=== PATIENT | male | born 1995 | race Caucasian/White ===

== ENCOUNTER 2017-07-25 11:00 | Outpatient (RCR) | payer BC ==
[2017-06-27 12:26] VITALS: Ht 173 cm; Wt 65.9 kg
[~2017-07-25] VITALS: Ht 173 cm; Wt 65.9 kg
[~2017-07-25 11:00] MED LIST: CIPR-214 PO; FAMO20TA28 PO; HYDR-385 PO; IBUP-1671 PO
[2017-07-25 11:06] VITALS: BP 119/71
--- NOTE | 2017-07-29 16:20 | ONCOLOGY CONSULTATION ---
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 ONCOLOGY HISTORY Patient is a 22-year-old [place] male who presented with right testicular pain and swelling, so he presented to the emergency department, where he had an ultrasound of the testes and scrotum done on the June 25, 2017, which showed multiple right testicular masses. On June 25, 2017 he had a chest x- ray which was normal. On June 25, 2017 he had a preoperative alfafetoproteina which was high at 19. Beta hCG was high at 13, and LDH was normal at 523. On June 25, 2017 he had right orchiectomy and the pathology came back positive for 2 masses. The larger was 4 x 2.4 x 1.5 cm, and the smaller one measured 1.5 x 1.3 x 1 cm. Both are cystic. The tunica albuginea was not penetrated. The spermatic cord did not show evidence of a metastatic tumor at the margin. The tumor itself has areas of poorly-differentiated embryonal carcinoma alternating with teratomatous elements, including cartilage and adipose tissue and some immature -type tissue, and the tumor does not extend through the tunica albuginea. 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 So, the tumor is a stage 2 (pT1b cN1 cM0) based on a CT abdomen and pelvis which was done on July 10, 2017 and showed 1.2 cm right external iliac nodule. Could be a lymph node. PAST MEDICAL HISTORY Insignificant. PAST SURGICAL HISTORY Right orchiectomy on June 25, 2017. SOCIAL HISTORY Patient is single with no children. He works at [employer]. He smokes electronic cigarettes, but he drinks about 2 to 3 drinks during the weekends between hard liquor and beer. He used also marijuana. FAMILY HISTORY Maternal grandmother had some sort of cancer. He does not know exactly the type , but his paternal uncle had prostate cancer. CURRENT MEDICATIONS None. ALLERGIES No known drug allergies. REVIEW OF SYSTEMS CONSTITUTIONAL: No appetite or weight change. No fever, chills or sweating. No recent infection. HEENT: Ears: No tinnitus or hearing problem. Nose: No nasal discharge or epistaxis. Throat: No sore throat or mouth ulcers. Eyes: No diplopia or visual changes. RESPIRATORY: No shortness of breath. No cough, expectoration or hemoptysis. CARDIOVASCULAR: No chest pain, orthopnea, or paroxysmal nocturnal dyspnea (PND) . No edema. No palpitations. GASTROINTESTINAL: No nausea or vomiting. No diarrhea or constipation. No change in bowel movements. No heartburn or swallowing difficulties. No abdominal pain. No jaundice. No hematemesis, melena or rectal bleeding. GENITOURINARY: No hematuria or dysuria. MUSCULOSKELETAL: No pain in the muscles, joints or bones. NEUROLOGICAL: No tingling or numbness in the hands or feet. No headaches or convulsions. HEMATOLOGIC/LYMPHATIC: No bleeding or easy bruising. No weakness or fatigue. No enlarged lymph nodes. SKIN: No skin rash or lumps. PSYCHIATRIC: No anxiety or depression. PHYSICAL EXAMINATION GENERAL: Looks stable. Well-developed, well-nourished, and in no acute distress. VITAL SIGNS: Blood pressure 119/71, pulse 78 per minutes, respirations 16 per minute, temperature 96.8, pulse ox 94% on room air. Height 173 cm and weight 65 kilograms. HEENT: Head: Atraumatic. No sinus tenderness to palpation. Eyes: No icterus or conjunctivitis. Mouth and throat: No oral thrush or mucositis. NECK: Supple. No cervical or supraclavicular lymphadenopathy. LUNGS: Clear to auscultation and percussion bilaterally. HEART: Regular rate and rhythm. No gallops, murmurs, clicks or rubs. ABDOMEN: Soft and lax. No tenderness. No hepatosplenomegaly. No masses. EXTREMITIES: No cyanosis, clubbing or edema. LYMPHATICS: No peripheral lymphadenopathy. NEUROLOGICAL: Conscious, alert and oriented times three. No focal motor or sensory deficits. PSYCHIATRIC: Mood and affect appear normal. SKIN: No skin rash, bruise or purpuric eruption. 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 Preoperative tumor markers showed high alfafetoproteina at 19 and high beta hCG at 13 with normal LDH at 523. Patient had right orchiectomy done on June 25, 2017, and 2 masses were found limited to the testicle. The largest one was 4 cm while the smaller one was 1.5 cm. There is no invasion of the spermatic cord margin and no penetration of the tunica albuginea. CT abdomen and pelvis done on July 10, 2017 did reveal 1.2 cm right external iliac nodule suggestive of lymph node metastases. I am planning to get a PET CT scan to evaluate this lymph node to see if they are malignant or not. I am planning to repeat his marker to see if the markers are persistently elevated or not, so I am planning to check his alfafetoproteina, beta hCG, and LDH. I will see him after that to decide about further management. I am planning also to check his pulmonary function test for DLCO if the patient will use BEP chemotherapy with bleomycin. So, hopefully next week we will send him to start his chemotherapy. For the administration of chemotherapy, I may decide to place a PICC line for the treatment. The number of chemotherapy cycles will differ according to the stage , and the type of chemotherapy will differ between BEP or ET chemotherapy based also on the stage. I explained that to the patient, and patient is agreeable with the plan of management. PLAN 1. PET CT scan. 2. Pulmonary function tests for DLCO. 3. Check CBC, chem panel, alfafetoproteina, quantitative beta hCG, and LDH. 4. Patient to return in 1 week for further evaluation and management. 5. Patient to contact us for any new concerns or complaints. EMILYD
[2017-08-13 16:43] VITALS: BP 122/58
[2017-08-13 17:38] LABS: PLATELET COUNT, AUTOMATED 222 K/uL (150-450)
--- NOTE | 2017-08-13 23:34 | ONCOLOGY FOLLOW UP NOTE ---
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 CHIEF COMPLAINT Patient feels well today. INTERIM HISTORY Patient returns to clinic for a follow-up visit today. He had been seen initially by Dr. Frey here in the [facility]. Due to logistical issues and timing, he is seeing me for followup today. Symptomatically, he reports that he is feeling just fine. He has questions about his potential future need for chemotherapy, and he requests that we have his mother on the phone for a conference call today. REVIEW OF SYSTEMS Otherwise negative, and all systems were reviewed. PAST MEDICAL HISTORY None. PAST SURGICAL HISTORY Status post right orchiectomy, June 25, 2017. CURRENT MEDICATIONS None. ALLERGIES None. SOCIAL HISTORY The patient is currently single and does not have children. He is going to [employer], and he reports that he will be graduating this year. He has occasional alcohol, but intake does not seem heavy. He has used marijuana in the past. He reportedly smokes electronic cigarettes. FAMILY HISTORY He does report that his maternal grandmother had of cancer, but he is not sure what type. A paternal uncle had prostate cancer. VITAL SIGNS Temperature 97.0, blood pressure 122/58, heart rate is 73, respirations 16, oxygen saturation is 97% on room air. Weight is 65.9 kg. PHYSICAL EXAMINATION GENERAL: Patient is alert and oriented times three, in no apparent distress sitting in the exam room chair. He appears quite healthy. He is interactive and in good spirits. HEENT: Exam reveals anicteric sclerae. NEUROLOGIC: Exam is grossly normal and his gait is normal. EXTREMITIES: Exam reveals no edema, clubbing or cyanosis. SKIN: Exam reveals no concerning rash or lesions. LABORATORY STUDIES Reviewed per the [facility] record. IMAGING STUDIES Reviewed per the [facility] record. PATHOLOGY Results are reviewed per the [facility] record. 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 I had a good visit with Catracho, and his mother via the phone today. We spent time reviewing his oncologic history. For brief review, he did undergo a testicular ultrasound on June 25, after presenting with right testicular pain. The ultrasound showed right testicular masses. He had a subsequent chest x-ray which was normal. His preoperative tumor markers revealed a slightly elevated AFP at 19. His beta HCG was 13, and LDH was normal at 523. He underwent right orchiectomy on June 25. We spent time reviewing his pathology report today. There were reportedly two masses. The tumor had areas of poorly differentiated embryonal carcinoma as well as teratomatous elements including cartilage and adipose tissue and some immature type tissue. The tumor did not extend through the tunica albuginea. There was no evidence of spermatic cord involvement. He subsequently underwent a CT scan of the abdomen and pelvis on July 10. This revealed a 1.2 x 0.9 right external iliac nodule adjacent to a surgical clip near the postoperative site above the groin, possibly representing an area of scarring or a mildly prominent lymph node. The CT scan was otherwise negative. Catracho had questions today about his potential need for adjuvant chemotherapy. We spent time discussing the nature of nonseminomatous germ cell tumors, and in particular the aggressive component being the embryonal component. At this point, I am a bit uncertain about his staging. His pathology report indicates no invasion of the tunica albuginea, but I am uncertain of presence of lymphovascular invasion. This will need to be clarified with Pathology. In addition, there is this 1.2 x 0.9 cm nodule/lymph node that is in a somewhat atypical position for what would be considered a classical lymph node metastasis from his testicular primary. I would also like to have his imaging reviewed at [facility] [place] as soon as possible. I will arrange for this. At this point, with his staging being somewhat uncertain, I cannot say whether adjuvant chemotherapy for this young man is absolutely imperative. Should he have a lower stage primary tumor, or should there be less concern for N1 disease , we could potentially have him move forward with surveillance. It had previously been recommended that he go for a CT PET scan, and I do think that this could be helpful. We will help him get this scheduled today. He has not yet had postoperative tumor markers drawn, which also had been recommended. I have implored him to go to the lab by the end of this week to have his markers re-drawn. If there is persistent elevation in his markers, he will require chemotherapy. As discussed further today, I will be back in touch with the patient when we have further information. I would like to see him during my next trip to [facility]. Although we did not discuss this possibility much today , depending on his final staging, he could potentially entertain the idea of undergoing retroperitoneal lymph node dissection. This would be discussed in the future if pertinent. Catracho and his mother had several further questions for me today, and I believe I answered all of their questions to their satisfaction. I spent a total of 45 minutes of total care time face to face with the patient today, and 40 minutes of this was spent in direct counseling and coordination of care. JOHNNA
--- NOTE | 2017-09-03 21:33 | ONCOLOGY FOLLOW UP NOTE ---
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 CHIEF COMPLAINT The patient feels well today. INTERIM HISTORY Catracho returns to clinic for a follow-up visit today. Since our last visit, he has been feeling just fine. He has no new symptoms to report. He has undergone a CT PET scan, he has had repeat tumor markers drawn, and he has had his prior CT scan re-reviewed, and he has also had a second opinion from Pathology. He is here to discuss his situation further. He has his mother joining us for this visit on his cell phone today, as had happened during our first visit. REVIEW OF SYSTEMS Otherwise negative, and all systems were reviewed. PAST MEDICAL HISTORY None. PAST SURGICAL HISTORY Status post right orchiectomy, June 25, 2017. CURRENT MEDICATIONS None. ALLERGIES None. SOCIAL HISTORY The patient is currently single and does not have children. He is going to [employer], and he reports that he will be graduating this year. He has occasional alcohol, but intake does not seem heavy. He has used marijuana in the past. He reportedly smokes electronic cigarettes. FAMILY HISTORY He does report that his maternal grandmother had of cancer, but he is not sure what type. A paternal uncle had prostate cancer. VITAL SIGNS Patient is afebrile, blood pressure 130/82, heart rate is 80, respirations 16, oxygen saturation is 96% on room air. PHYSICAL EXAMINATION GENERAL: Patient is alert and oriented times three, in no apparent distress sitting in the exam room chair. He is in good spirits and interactive. He appears healthy. HEENT: Exam reveals anicteric sclerae. NEUROLOGIC: Exam is grossly normal and his gait is normal. EXTREMITIES: Exam reveals no edema, clubbing or cyanosis. SKIN: Exam reveals no concerning rash or lesion. LABORATORY STUDIES Repeat alpha feta protein and beta HCG are normal. IMAGING STUDIES CT PET Scan reveals no evidence of glucose avid disease. PATHOLOGY Reviewed again, second opinion. Please see assessment and plan. 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 I had a good visit with Catracho, and his mother via his cell phone today. Symptomatically, as expected, he continues to do quite well. He has been busy with his schooling at [employer]. First, today we discussed that his prior CT has been informally reviewed, and there does not seem to be convincing evidence of lymph node positive disease on this study. We moved on to review his CT PET scan results. Similarly, there is no evidence of glucose active disease on the CT PET scan, and no particularly concerning findings in the retroperitoneum. The second opinion of his surgical pathology (orchiectomy) was also discussed. The greatest dimension of primary tumor appears to be 4.0 cm, the largest of two tumors, with the smaller being 1.5 cm in greatest dimension. Histology is consistent with nonseminomatous mixed germ cell tumor with 60% teratoma (mature and immature), embryonal carcinoma 20%, and yolk sac tumor 20%. The tumor invades hilar soft tissue. The spermatic cord margin was uninvolved by tumor. Lymphovascular invasion was not identified. The primary tumor appears to be a pT2 lesion. Lastly today we discussed that his follow-up tumor markers, importantly, are now normal. I had discussed similar issues on the phone recently with Catracho, but we spent time reviewing these with his mother today. His options are as follows. He could undergo surveillance alone, but he understands that the need for ongoing medical oncology followup would be absolutely imperative. I would estimate his risk of recurrence with no adjuvant therapy to be about 50%. His next option would be to consider one to two cycles of BEP which would greatly reduce his risk of relapse, with overall cure rate likely in the neighborhood of about 95%. Finally, he may consider retroperitoneal lymph node dissection. I have reviewed his situation with colleagues at [facility] , and there is work in place right now to find a time for him to come for a visit. We did spend some extra time today discussing his ongoing training at [employer], and the patient does tell me again today that it has been and will continue to be very difficult to find additional time to go for visits. This is apparently due to the strict schedule that is held at his training program. He states that he may be able to make it down to [facility] in the next two weeks, but he is not entirely sure. As discussed, I would want to talk about this with his instructors, as these visits and decisions are critical to his successful management and overall survival. I spent a total of 30 minutes of total care time with the patient today, face to face. Twenty-five minutes of this time was spent in direct counseling and coordination of care. JOHNNA
--- NOTE | 2017-10-01 21:16 | ONCOLOGY FOLLOW UP NOTE ---
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 CHIEF COMPLAINT Patient feels well today. INTERIM HISTORY Catracho returns to clinic for a follow-up visit today. He almost missed this clinic visit because he had to finish with his work/training at [employer] for the day. He reports that he has been feeling the same. He has no new complaints. He has not established care with Dr. Batista or Dr. Hernandez at the [facility]. He reports no particular progress or communication with his instructors at [employer]. He reports that he is basically wanting to focus on his studies at this point, because he cannot afford to miss out on points at his training program, or his grades will suffer. REVIEW OF SYSTEMS Otherwise negative, and all systems were reviewed. PAST MEDICAL HISTORY None. PAST SURGICAL HISTORY Status post right orchiectomy, June 25, 2017. CURRENT MEDICATIONS None. ALLERGIES None. SOCIAL HISTORY The patient is currently single and does not have children. He is going to [employer], and he reports that he will be graduating this year. He has occasional alcohol, but intake does not seem heavy. He has used marijuana in the past. He reportedly smokes electronic cigarettes. FAMILY HISTORY He does report that his maternal grandmother had of cancer, but he is not sure what type. A paternal uncle had prostate cancer. VITAL SIGNS Temperature is 97.6, blood pressure 103/60, heart rate is 74, respirations 16, oxygen saturation is 96% on room air. PHYSICAL EXAMINATION GENERAL: Patient is alert and oriented times three, in no apparent distress sitting in the exam room chair. He appears healthy. He is interactive and pleasant. HEENT: Exam reveals anicteric sclerae. NEUROLOGIC: Exam is grossly nonfocal and his gait is normal. EXTREMITIES: Exam reveals no edema, clubbing or cyanosis. SKIN: Exam reveals no concerning rash or lesion. LABORATORY STUDIES None today. IMAGING STUDIES See prior. 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 I visited again with Shahram today about his particular situation. We spent time discussing his diagnosis, staging, and options related to strategy for stage IB nonseminomatous germ cell tumor of the right testicle. These options include chemistry, retroperitoneal lymph node discussion, or surveillance. At this time , it does not appear that there has been any additional progress made in terms of him getting time off from work/school/training to make an appointment to discuss his surgical options at [facility]. As discussed today, much like the discussion that took place at a recent visit, I would want him to be sure that he is prioritizing his health. He understands my concern, and he will be talking again with his instructors, and potentially Human Resources at [employer]. We discussed that surveillance is not inappropriate at this point, and he has been good about keeping appointments with me. His risk of recurrence, however, will be inherently higher without any adjuvant chemotherapy, or without retroperitoneal lymph node dissection. He again expresses understanding of this. He understands that if there is recurrence, chemotherapy will be in order. Patient will get back in touch with me, and I will be waiting to hear from him. I am more than happy to discuss things further with personnel at [employer]. I will plan to see him back in one month, or sooner if there are questions or concerns. JOHNNA
== END 2017-10-22 ==
LOC: ONC 11:00
PROVIDERS: ATTEND Internal Medicine Medical Oncology
DX: C62.91 Malignant neoplasm of right testis, unspecified whether descended or undescended (principal)
CPT/HCPCS: 82040; 82105; 82247; 82310; 82374; 82435; 82565; 82947; 83615; 84075; 84132; 84155; 84295; 84450; 84460; 84520; 84702; 85025; 99202; 99212

== ENCOUNTER 2017-12-01 16:40 | Emergency (ER) | payer BC ==
[2017-06-27 12:26] VITALS: Wt 61.5 kg
--- NOTE | 2017-12-01 16:56 | ER Report ---
History and Physical Time Seen By MD: 16:55 Hx. of Stated Complaint: Patient with missed appointment by [address] Maciel's office wouldn't see him. Told to follow up here. HPI/ROS CHIEF COMPLAINT: Possible peritonsillar abscess HISTORY OF PRESENT ILLNESS: This is a 22-year-old male who presents to the emergency department for concern of a peritonsillar abscess. Patient was seen at urgent care, they were concerned that she had a peritonsillar abscess sent him to Dr. Maciel's office, unfortunately the patient missed his appointment with Dr. Maciel they weren't able to squeeze him in to the clinic. Patient denies chest pain, nausea, vomiting, rashes or shortness of breath. REVIEW OF SYSTEMS: Constitutional: No fever, no chills. Eyes: No discharge. ENT: As above. Cardiovascular: No chest pain, no palpitations. Respiratory: No cough, no shortness of breath. Gastrointestinal: No abdominal pain, no vomiting. Genitourinary: No hematuria. Musculoskeletal: No back pain. Skin: No rashes. Neurological: No headache. Allergies: Coded Allergies: No Known Drug Allergies (Unverified , 12/01/17) Home Meds Discontinued Reported Medications Hydrocodone Bit/Acetaminophen (HYDROCODON-ACETAMINOPHEN 5-325) 1 Each Tablet, 1 EACH PO Q4-6H Y for PAIN, TAB 06/27/17 Ciprofloxacin Hcl (CIPROFLOXACIN HCL) 500 Mg Tablet, 500 MG PO BID, #14 TAB 06/27/17 Ibuprofen (MOTRIN IB) 200 Mg Tablet, 3 TAB PO TID Y for PAIN 06/27/17 Famotidine (PEPCID) 20 Mg Tablet, 20 MG PO BID, #10 TAB 06/27/17 Past Medical/Surgical History Patient has a past medical and surgical history of orchiectomy secondary to cancer. Hx Smoking: Yes Smoking Status: Current: Every Day Smoker Hx Substance Use Disorder: Yes (steph) Hx Alcohol Use: Yes ([facility]) Constitutional Vital Sign - Last 24 Hours 12/01/17 12/01/17 12/01/17 12/01/17 16:43 16:45 17:00 17:15 Temp 98.8 Pulse 118 120 102 93 Resp 16 B/P (MAP) 140/82 113/80 (91) Pulse Ox 93 93 94 93 O2 Delivery Room Air 12/01/17 12/01/17 12/01/17 12/01/17 17:30 18:00 18:15 18:30 Pulse 97 92 96 106 B/P (MAP) 101/72 (82) 117/79 (92) 129/101 (110) Pulse Ox 95 94 92 92 12/01/17 12/01/17 12/01/17 12/01/17 18:45 19:00 19:15 19:30 Pulse 100 99 107 108 B/P (MAP) 116/72 (87) 96/64 (75) Pulse Ox 95 93 92 96 12/01/17 19:45 Pulse 95 Pulse Ox 92 Intake and Output 12/01/17 12/01/17 12/02/17 15:00 23:00 07:00 Intake Total 50 ml Balance 50 ml Physical Exam General Appearance: The patient is alert, has no immediate need for airway protection and no signs of toxicity. Eyes: Pupils equal and round no pallor or injection. ENT, Mouth: Mucous membranes are moist. 4+ tonsils, slight uvular deviation to the right. Erythema to the soft palate. Unable to visualize the posterior oropharynx. Respiratory: There are no retractions, lungs are clear to auscultation. Cardiovascular: Regular rate and rhythm, no murmurs, clicks or rubs. Gastrointestinal: Abdomen is soft and non tender, no masses, bowel sounds normal. Neurological: Alert and oriented 4. Moving all extremities. Following all commands. No focal neuro deficits. Skin: Warm and dry, no rashes. Musculoskeletal: Anterior cervical no lymphadenopathy, submandibular lymphadenopathy greater on the left than the right. Submental lymphadenopathy. Extremities are nontender, nonswollen and have full range of motion. DIFFERENTIAL DIAGNOSIS: After history and physical exam differential diagnosis was considered for peritonsillar abscess, Hugh's angina, mumps, dental abscess , and mono. Medical Decision Making Data Points Result Diagram: 12/01/17 1726 12/01/17 1726 Laboratory Hematology Test 12/01/17 17:26 Red Blood Count 5.75 M/uL (4.00-5.60) Mean Corpuscular Volume 82.3 fL (80.0-96.0) Mean Corpuscular Hemoglobin 28.7 pg (26.0-33.0) Mean Corpuscular Hemoglobin Concent 34.9 g/dL (32.0-36.0) Red Cell Distribution Width 12.4 % (11.5-14.5) Mean Platelet Volume 8.8 fL (7.2-11.1) Neutrophils (%) (Auto) 82.2 % (39.4-72.5) Lymphocytes (%) (Auto) 8.2 % (17.6-49.6) Monocytes (%) (Auto) 9.1 % (4.1-12.4) Eosinophils (%) (Auto) 0.2 % (0.4-6.7) Basophils (%) (Auto) 0.3 % (0.3-1.4) Nucleated RBC Relative Count (auto) 0.0 /100WBC Neutrophils # (Auto) 12.0 K/uL (2.0-7.4) Lymphocytes # (Auto) 1.2 K/uL (1.3-3.6) Monocytes # (Auto) 1.3 K/uL (0.3-1.0) Eosinophils # (Auto) 0.0 K/uL (0.0-0.5) Basophils # (Auto) 0.0 K/uL (0.0-0.1) Nucleated RBC Absolute Count (auto) 0.01 K/uL Sodium Level 138 mmol/L (137-145) Potassium Level 3.8 mmol/L (3.5-5.0) Chloride Level 96 mmol/L (98-107) Carbon Dioxide Level 25 mmol/L (22-30) Blood Urea Nitrogen 14 mg/dl (9-21) Creatinine 1.00 mg/dl (0.66-1.25) Glomerular Filtration Rate Calc > 60.0 Random Glucose 89 mg/dl (75-110) Calcium Level 9.8 mg/dl (8.4-10.2) Total Bilirubin 1.7 mg/dl (0.2-1.3) Aspartate Amino Transf (AST/SGOT) 15 U/L (0-35) Alanine Aminotransferase (ALT/SGPT) 20 U/L (0-56) Alkaline Phosphatase 103 U/L (0-126) Total Protein 8.1 gm/dl (6.3-8.2) Albumin 4.4 g/dl (3.5-5.0) Chemistry Test 12/01/17 17:26 White Blood Count 14.6 k/uL (4.5-11.0) Red Blood Count 5.75 M/uL (4.00-5.60) Hemoglobin 16.5 g/dL (14.0-18.0) Hematocrit 47.3 % (42.0-52.0) Mean Corpuscular Volume 82.3 fL (80.0-96.0) Mean Corpuscular Hemoglobin 28.7 pg (26.0-33.0) Mean Corpuscular Hemoglobin Concent 34.9 g/dL (32.0-36.0) Red Cell Distribution Width 12.4 % (11.5-14.5) Platelet Count 279 K/uL (150-450) Mean Platelet Volume 8.8 fL (7.2-11.1) Neutrophils (%) (Auto) 82.2 % (39.4-72.5) Lymphocytes (%) (Auto) 8.2 % (17.6-49.6) Monocytes (%) (Auto) 9.1 % (4.1-12.4) Eosinophils (%) (Auto) 0.2 % (0.4-6.7) Basophils (%) (Auto) 0.3 % (0.3-1.4) Nucleated RBC Relative Count (auto) 0.0 /100WBC Neutrophils # (Auto) 12.0 K/uL (2.0-7.4) Lymphocytes # (Auto) 1.2 K/uL (1.3-3.6) Monocytes # (Auto) 1.3 K/uL (0.3-1.0) Eosinophils # (Auto) 0.0 K/uL (0.0-0.5) Basophils # (Auto) 0.0 K/uL (0.0-0.1) Nucleated RBC Absolute Count (auto) 0.01 K/uL Glomerular Filtration Rate Calc > 60.0 Calcium Level 9.8 mg/dl (8.4-10.2) Total Bilirubin 1.7 mg/dl (0.2-1.3) Aspartate Amino Transf (AST/SGOT) 15 U/L (0-35) Alanine Aminotransferase (ALT/SGPT) 20 U/L (0-56) Alkaline Phosphatase 103 U/L (0-126) Total Protein 8.1 gm/dl (6.3-8.2) Albumin 4.4 g/dl (3.5-5.0) EKG/Imaging Imaging Location: [facility] Patient: Catracho Pdaron : 1995 Visit/Account:[id number] Date of Sevice: 12/01/2017 CT OF THE NECK WITH CONTRAST INDICATION: Difficulty swallowing. Swelling on the left side. COMPARISON: non available TECHNIQUE: Axial CT images was obtained through the neck soft tissues after administration of 75 mL Isovue-370 IV contrast. Reformatted coronal and sagittal images were reviewed. One of the following dose optimization techniques was utilized in the performance of this exam: Automated exposure control; adjustment of the mA and/ or kV according to the patient's size; or use of an iterative reconstruction technique. Specific details can be referenced in the facility's radiology CT exam operational policy. FINDINGS: The left tonsillar region does show an rim-enhancing hypodensity consistent with a abscess measuring 2.2 x 1.7 x 2.7 cm. There is minimal mass effect against the airway without narrowing of the airway. The right tonsillar fossa does show a 4 mm abscess. The pharyngeal and retropharyngeal soft tissues are otherwise unremarkable. The soft tissues neck show normal fat and muscle planes without enlarged lymph nodes, masses or other fluid collections. The glandular structures are symmetric without focal abnormality. The vascular structures are within normal limits. Visualized brain is unremarkable. Sinuses and mastoids visualized are clear. The bony structures are normal for age without acute abnormality. IMPRESSION: 1. 2.7 cm left tonsillar abscess. There is also a 4 mm right tonsillar abscess. I called report to DICKSON PEREZ at 12/01/2017 6:30 PM. Report Dictated By: Javy Shaw at 12/01/2017 6:23 PM Report E-Signed By: Javy Shaw at 12/01/2017 6:31 PM WSN:[id number] ED Course/Re-evaluation Clinical Indication for ER IV: IV Access ED Course The patient was admitted to a room. A history physical were obtained. Differential diagnoses were considered. An IV was started. A CBC, CMP were obtained. WBCs 14.6 with a left shift. The rest of the blood work unremarkable. A CT of the neck showing a 2.7 cm left tonsillar abscess, as well as a 4 mm abscess on the right. The patient was given a total of 6 mg of IV morphine. 10 mg IV Decadron, 600 mg IV clindamycin. I did review these results with the patient and did explain to him that we will be sending him to the [facility] as noted below, for a peritonsillar abscess drainage. The patient was in agreement with this plan of care. The patient will be transferred via EMS. 12/01/2017 6:57:48 pm I did speak with Dr. Roblero the roller bearing inspector in [place] at [facility] he said he would be happy to see patient in the emergency department and drain the peritonsillar abscess. I also spoke with Dr. Lechuga the [place] ER physician and they have also accept the patient into the emergency department. Patient will be transferred to the [facility] via EMS. Decision to Disposition Date: Dec 01, 2017 Decision to Disposition Time: 18:58 Depart Departure Latest Vital Signs Vital Signs Date Time Temp Pulse Resp B/P (MAP) Pulse Ox O2 Delivery O2 Flow Rate FiO2 12/01/17 19:45 95 92 12/01/17 19:30 96/64 (75) 12/01/17 16:43 98.8 16 Room Air Impression: Primary Impression: Peritonsillar abscess Condition: Improved Disposition: [facility]FER TO [facility] New Scripts No Active Prescriptions or Reported Meds DICKSON PEREZ [address] WORKER-BC Dec 01, 2017 16:56
[2017-12-01] MEDS ORDERED: MORPHINE 2 MG/ML SYR IVP ONE (17:10)
[2017-12-01 17:38] LABS: PLATELET COUNT, AUTOMATED 279 K/uL (150-450)
[2017-12-01] MEDS ORDERED: IOPAMIDOL 76% 75 ML INFUS BTL 75 ML ONE (17:46)
[2017-12-01] MEDS ORDERED: MORPHINE 4 MG/ML SDV IVP ONE (18:10)
--- NOTE | 2017-12-01 18:34 | RADIOLOGY IMAGING REPORT ---
FACILITY: [facility] PATIENT NAME: Catracho Padron : 1995 MR: [id number] V: [id number] EXAM DATE: ORDERING PHYSICIAN: DICKSON PEREZ [place]CHNOLOGIST: [place] [facility] [place] Catr[place] Padron : 1995 Visit/Account:[id number] Date of Sevice: 12/01/2017 CT OF THE NECK WITH CONTRAST INDICATION: Difficulty swallowing. Swelling on the left side. COMPARISON: non available TECHNIQUE: Axial CT images was obtained through the neck soft tissues after administration of 75 mL I sovue-370 IV contrast. Reformatted coronal and sagittal images were reviewed. One of the following dose optimization techniques was utilized in the performance of this exam: Autom ated exposure control; adjustment of the mA and/or kV according to the patient's size; or use of an i terative reconstruction technique. Specific details can be referenced in the facility's radiology C T exam operational policy. FINDINGS: The left tonsillar region does show an rim-enhancing hypodensity consistent with a abscess measuring 2.2 x 1.7 x 2.7 cm. There is minimal mass effect against the airway without narrowing of the airway. The right tonsillar fossa does show a 4 mm abscess. The pharyngeal and retropharyngeal soft tissues a re otherwise unremarkable. The soft tissues neck show normal fat and muscle planes without enlarged lymph nodes, masses or other fluid collections. The glandular structures are symmetric without focal abnormality. The vascular st ructures are within normal limits. Visualized brain is unremarkable. Sinuses and mastoids visualized are clear. The bony structures are normal for age without acute abnormality. IMPRESSION: 1. 2.7 cm left tonsillar abscess. There is also a 4 mm right tonsillar abscess. I called report to DICKSON PEREZ at 12/01/2017 6:30 PM. Report Dictated By: Javy Shaw at 12/01/2017 6:23 PM Report E-Signed By: Javy Shaw at 12/01/2017 6:31 PM WSN:[id number]
[2017-12-01] MEDS ORDERED: DEXAMETHASONE SOD PHOS 10MG/ML IVP ONE (18:40)
[2017-12-01] MEDS ORDERED: CLINDAMYCIN(*) 600 MG/NS 50 ML 50 ML IVPB ONE (18:40)
[2017-12-01 19:30] VITALS: BP 96/64
== END 2017-12-01 20:00 | disposition short-term general hospital (02) ==
LOC: ER 16:41
DX: J36 Peritonsillar abscess (principal)
CPT/HCPCS: 70491; 85025; 96365; 96375; 96376; 99285; J1100; J2270; J3490; Q9967; 82040; 82247; 82310; 82374; 82435; 82565; 82947; 84075; 84132; 84155; 84295; 84450; 84460; 84520

== ENCOUNTER → 2017-12-01 | Outpatient (CLI) | payer BC ==
[2017-06-27 12:26] VITALS: BMI 21.6
== END ==
LOC: AMB 19:44
PROVIDERS: ATTEND Nurse Practitioner
DX: J36 Peritonsillar abscess (principal)
CPT/HCPCS: A0425; A0426

== ENCOUNTER 2017-12-31 16:30 | Outpatient (RCR) | payer BC ==
[2017-06-27 12:26] VITALS: Wt 64.4 kg
[2017-11-20 17:02] VITALS: BP 115/76
--- NOTE | 2017-11-22 14:21 | ONCOLOGY FOLLOW UP NOTE ---
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 CHIEF COMPLAINT Patient feels well today. INTERIM HISTORY Catracho returns to clinic for a follow-up visit today. He continues to attend school at [employer]. He has been somewhat frustrated with school, but he will be graduating in a couple of months. After graduation, he does plan to return to [facility] [facility] to find work. He relates that he did not make an appointment for surgical evaluation to discuss retroperitoneal lymph node dissection. He reports no new pain. His appetite is good, and his weight has been stable. He has had no new urinary symptoms. He denies fever. REVIEW OF SYSTEMS Otherwise negative, and all systems were reviewed. PAST MEDICAL HISTORY Testicular cancer, as above. PAST SURGICAL HISTORY Status post right orchiectomy, June 25, 2017. CURRENT MEDICATIONS None. ALLERGIES None. SOCIAL HISTORY The patient is currently single and does not have children. He is going to [employer], and he reports that he will be graduating this year. He has occasional alcohol, but intake does not seem heavy. He has used marijuana in the past. He reportedly smokes electronic cigarettes. FAMILY HISTORY He does report that his maternal grandmother had of cancer, but he is not sure what type. A paternal uncle had prostate cancer. VITAL SIGNS Temperature is 97.8, blood pressure 115/76, heart rate is 80, respirations 16, oxygen saturation is 98% on room air. PHYSICAL EXAMINATION GENERAL: Patient is alert and oriented times three, in no apparent distress sitting in the exam room chair. He is interactive and pleasant. He appears healthy. HEENT: Exam reveals anicteric sclerae. NEUROLOGIC: Exam is grossly nonfocal and his gait is normal. EXTREMITIES: Exam reveals no edema, clubbing or cyanosis. There is no erythema or tenderness to palpation of the extremities. SKIN: Exam reveals no concerning rash or lesion, but he does have multiple tattoos. LABORATORY STUDIES None today. IMAGING AND PATHOLOGY None today. 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 Symptomatically, Catracho continues to do quite well. He has no concerning signs or symptoms to suggest recurrence of his testicular cancer. As discussed today, the window for him to consider adjuvant therapy has closed. He is now about five months out from his surgery. By default, has opted to move forward with surveillance alone, as opposed to undergoing adjuvant chemotherapy or retroperitoneal lymph node dissection. As discussed, he will be due for re-imaging and labs next month, and I have recommended that he go for a contrast-enhanced CT scan of the abdomen and pelvis, a PA and lateral chest x-ray, and labs to include CBC, comprehensive metabolic panel, LDH, alpha fetoprotein, and beta hCG. He agrees to do so. As he will be leaving for his home in [facility] [place] [facility] after graduation from [employer], I would for certain want to visit with him prior to his departure to review his imaging and labs. At that time, we will also arrange for him to establish care in [facility] with the medical oncologist for ongoing testicular cancer surveillance. JOHNNA
[2017-12-22 16:55] VITALS: BP 97/69
[2017-12-22 17:04] LABS: PLATELET COUNT, AUTOMATED 194 K/uL (150-450)
--- NOTE | 2017-12-23 12:26 | RADIOLOGY IMAGING REPORT ---
FACILITY: [facility] [place] PATIENT NAME: Catracho Padron : 1995 MR: [id number] V: [id number] EXAM DATE: ORDERING PHYSICIAN: FLORECITA GARCIA TECHNOLOGIST: Location: [facility] Patient: Catracho Padron : 1995 Visit/Account:[id number] Date of Sevice: 12/23/2017 CHEST PA AND LAT INDICATION: Testicular cancer COMPARISON: 06/25/2017 FINDINGS: Heart size within normal limits. There is no focal infiltrate or lobar consolidation. There is no pneumothorax or pleural effusion. No masses identified. No bony abnormalities are seen IMPRESSION: 1. Negative chest Report Dictated By: Garrett Min at 12/23/2017 12:22 PM Report E-Signed By: Garrett Min at 12/23/2017 12:23 PM WSN:[id number]
--- NOTE | 2017-12-23 13:49 | RADIOLOGY IMAGING REPORT ---
FACILITY: [facility] PATIENT NAME: Catracho Padron : 1995 MR: [id number] V: [id number] EXAM DATE: ORDERING PHYSICIAN: FLORECITA GARCIA TECHNOLOGIST: [place] [facility] [place] Patient: Catracho Padron : 1995 Visit/Account:[id number] Date of Sevice: 12/23/2017 EXAMINATION: CT Abdomen W/O Contrast CT Abdomen W/ Contrast CT Pelvis W/O Contrast CT Pelvis W/ Contrast 12/23/2017 11:15 AM HISTORY: Testicular cancer TECHNIQUE: Spiral scans were obtained through the abdomen and pelvis before and during injection of nonionic iodinated intravenous contrast. Contrast: 75 mL of IV Isovue 370. One of the following dose optimization techniques was utilized in the performance of this exam: Autom ated exposure control; adjustment of the mA and/or kV according to the patient's size; or use of an i terative reconstruction technique. Specific details can be referenced in the facility's radiology C T exam operational policy. COMPARISON STUDIES: 07/10/2017. FINDINGS: Liver / biliary: negative Pancreas: negative Spleen: Incidental 2.4 cm inferomedial accessory splenule. Adrenal glands: negative Kidneys / retroperitoneum: Vague density along renal papillae. No well-defined calculus. Otherwise negative. Pelvic structures: Prior right orchiectomy. Bowel / peritoneum / mesenteries: negative Vessels: negative Musculoskeletal / Body wall: Schmorl's nodes at multiple levels incidentally in the lumbar spine. No significant acute finding. Lymph node assessment: 1.8 x 1.0 cm left periaortic lymph node (series 4, image 43) is not previously evident. Lymphadenopathy anteroinferior to the cava bifurcation measures 2.2 x 2.1 x 2.2 cm ((axial image 75, sagittal image 57). Nodule or lymph node adjacent to a clip in front of the right external iliac is about 8 mm, stable to minimally diminished. Lower chest: negative IMPRESSION: 1. New retroperitoneal adenopathy suspicious for metastatic disease. Small nodule or lymph node desire ng the external iliac on the right is stable to slightly diminished. 2. No other significant acute finding. 3. 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 Report Dictated By: Jaen Driscoll MD at 12/23/2017 12:51 PM Report E-Signed By: Jean Driscoll MD at 12/23/2017 1:45 PM WSN:[email or web address]
[~2017-12-31 16:30] MED LIST changes: +IOPAMIDOL 76% 75 ML INFUS BTL 75 ML ONE
[2017-12-31 16:33] VITALS: BP 112/65
--- NOTE | 2018-01-01 17:35 | ONCOLOGY FOLLOW UP NOTE ---
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 CHIEF COMPLAINT Patient feels well today. INTERIM HISTORY Catracho returns to clinic for a follow-up visit today. He reports that he is getting very close to being done with training at [employer]. He is planning on graduation in January, and then heading back to [place], [place], which is his hometown. He has undergone a CT scan and laboratory studies in followup for his testicular cancer, and he is here to review the results. REVIEW OF SYSTEMS Otherwise negative, and all systems were reviewed. PAST MEDICAL HISTORY Testicular cancer, as above. PAST SURGICAL HISTORY Status post right orchiectomy, June 25, 2017. CURRENT MEDICATIONS None. ALLERGIES None. SOCIAL HISTORY The patient is currently single and does not have children. He is going to [employer], and he reports that he will be graduating this year. He has occasional alcohol, but intake does not seem heavy. He has used marijuana in the past. He reportedly smokes electronic cigarettes. FAMILY HISTORY He does report that his maternal grandmother had of cancer, but he is not sure what type. A paternal uncle had prostate cancer. VITAL SIGNS Temperature is 97.6, blood pressure 112/63, heart rate is 82, respirations 16, oxygen saturation is 92% on room air. Weight is 64.4 kg. PHYSICAL EXAMINATION GENERAL: Patient is alert and oriented times three, in no apparent distress sitting in the exam room chair. He is interactive and pleasant. He appears healthy. HEENT: Exam reveals anicteric sclerae. NEUROLOGIC: Exam is grossly nonfocal and his gait is normal. SKIN: Exam reveals no concerning rash or lesion. EXTREMITIES: Exam reveals no edema, clubbing or cyanosis. LABORATORY STUDIES Reviewed per the [facility] record. IMAGING December, chest x-ray reveals no evidence of disease. A CT scan of the abdomen and pelvis reveals a 1.8 x 1.0 cm left periaortic lymph node that was not previously evident. This is suspicious for recurrent/metastatic disease. A small nodular lymph node along the external iliac on the right is stable to slightly diminished. There are no other significant findings. 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 I had a good visit with Catracho in the clinic today. We were able to communicate with his mother via cell phone for the majority of this visit, as well. Catracho continues to feel quite well, and he is close to being done with his schooling at [employer]. He does plan to return to [place], [place] after his graduation in January. We spent time discussing his labs. He does have a more elevated beta HCG, and this is concerning. This is in conjunction with the results of his CT scan of the abdomen and pelvis that does reveal new retroperitoneal lymphadenopathy that is concerning for recurrent testicular cancer. There is no evidence of disease on his chest x-ray. We discussed the implications of these findings. Catracho knew that if there was evidence of recurrent testicular cancer that he would be bound for chemotherapy. We discussed his options in this regard today. He does have the option of receiving BEP for three cycles versus EP for four cycles. We discussed concern for pulmonary toxicity with bleomycin, but that if he were to choose EP chemotherapy, it would be more time consuming with an additional cycle of treatment. We discussed that his prognosis remains quite good, but that it will be very important for him to establish care with a medical oncologist in [place] upon his return there in January. He agrees to do this. Remarkably, he does have a friend who apparently is undergoing treatment for testicular cancer in [place], and Shahram is currently working on getting the name for this provider. Once we are able to establish who he is going to see in [place], we will work to be sure that all of his records are forwarded. I would certainly be more than happy to discuss things with him in the interim before he takes off for [place], but I find this less than likely. Shahram had several additional questions, as did his mother via the phone today. I believe I answered all these questions to his satisfaction. JOHNNA
== END 2018-01-22 14:18 | disposition home or self-care (01) ==
LOC: ONC 16:30
PROVIDERS: ATTEND Internal Medicine Medical Oncology
DX: Z85.47 Personal history of malignant neoplasm of testis (principal); F17.290 Nicotine dependence, other tobacco product, uncomplicated; M51.46 Schmorl's nodes, lumbar region
CPT/HCPCS: 36415; 71046; 74178; 82105; 83615; 84702; 85025; 99212; Q9967; 82040; 82247; 82310; 82374; 82435; 82565; 82947; 84075; 84132; 84155; 84295; 84450; 84460; 84520